=== PATIENT | female | born 1965 | race Caucasian/White ===

== ENCOUNTER 2019-07-01 07:42 | Day surgery (SDC) | payer OTHER ==
[2019-06-23 13:26] VITALS: BMI 47.2
[2019-07-01 08:15] VITALS: TEMP 97.8
[2019-07-01] MEDS ORDERED: MIDAZOLAM HCL 2 MG/2 ML SINGLE DOSE VIAL ONE (08:20)
[2019-07-01] MEDS ORDERED: PROPOFOL 20 ML ONE (08:21)
[2019-07-01] MEDS ORDERED: LIDOCAINE HCL/PF 2% SDV 5ML VIAL ONE (08:21)
[2019-07-01] MEDS ORDERED: KETOROLAC TROMETHAMINE 30 MG/1 ML VIAL ONE (09:15)
[2019-07-01 10:12] VITALS: BP 94/60; PULSE 74
--- NOTE | 2019-07-06 11:12 | OP ---
DATE OF OPERATION: 07/01/2019 PREOPERATIVE DIAGNOSIS: Right carpal tunnel syndrome. POSTOPERATIVE DIAGNOSIS: Right carpal tunnel syndrome. OPERATIVE PROCEDURE: Right carpal tunnel release. ANESTHESIA: Local with sedation. COMPLICATIONS: None. ESTIMATED BLOOD LOSS: Minimal. INDICATIONS FOR PROCEDURE: The patient presented with the above finding. Was indicated for operative treatment. Risks, benefits, alternatives were discussed with the patient at length. Proper informed consent was obtained. DESCRIPTION OF PROCEDURE: After proper identification of patient and correct operative site, patient was brought to the operating room and placed supine on the table, prominences well padded. Sedation with local anesthesia was given. Right upper extremity was prepped and draped in the usual sterile fashion. A well-padded tourniquet was placed with a sterile prep. Esmarch bandage used to exsanguinate right upper extremity. Tourniquet was inflated to 250 mmHg. Longitudinal incision was made at the proximal aspect of the palm. Incision was taken sharply through the skin with sharp and blunt dissection in the subcutaneous tissues. Palmar fascia was divided longitudinally. Transverse carpal ligament was divided longitudinally along with the 4 cm of antebrachial fascia under direct visualization with loupe magnification. This provided complete release of median nerve at the wrist. The wound was irrigated and repaired with 5-0 fast-absorbing plain gut suture. Sterile dressings were applied. The patient was brought to recovery room in stable condition. She tolerated the procedure well. Mary [id number]
== END 2019-07-01 10:05 | disposition home or self-care (01) ==
LOC: FASU 07:42
PROVIDERS: ATTEND Orthopaedic Surgery Hand Surgery
PROC: 01N50ZZ Release Median Nerve, Open Approach (ICD-10-PCS; principal; 2019-07-01 09:08)
DX: G56.01 Carpal tunnel syndrome, right upper limb (principal)